=== PATIENT | female | born 1970 | race Caucasian/White ===

== ENCOUNTER 2016-09-14 15:50 | Emergency (ER) | payer OTHER ==
[2016-09-14 15:59] VITALS: BMI 24.4
--- NOTE | 2016-09-14 17:33 | PDOC ---
History of Present Illness - General History Source: Patient Exam Limitations: No Limitations - History of Present Illness Initial Comments: 09/14/16 17:55 The patient is a 46 year old female, with a significant past medical history of asthma and HTN, who presents to the emergency department with wheezing and shortness of breath for the past week. She rates her pain a 10/10 in severity and reports that it particularly hurts when she takes a deep breath. The patient states that her symptoms feel similar to previous asthma exacerbations. The patient denies fever, chills, cough or any chest pain. The patient states that she did have a flu shot this season. The patients primary language is Serbian. Allergies: None reported. Past Surgical History: Eris Muñoz Social History: Non smoker. Denies alcohol or drug use. PCP: Dr. Nataliia Otero <Pat Broderick - Last Filed: 09/14/16 22:49> <Yaya Poole - Last Filed: 09/15/16 01:24> - General Chief Complaint: Asthma Stated Complaint: asthma,sob,wheeze Past History <Pat Broderick - Last Filed: 09/14/16 22:49> - Past Medical History Anemia: No Asthma: Yes Cancer: No Cardiac Disorders: No CVA: No COPD: No CHF: No Dementia: No Diabetes: No GI Disorders: No Disorders: No HTN: Yes Hypercholesterolemia: No Liver Disease: No Seizures: No Thyroid Disease: No - Surgical History Abdominal Surgery: Yes (JESSEE REJI) - Psycho/Social/Smoking Cessation Hx Anxiety: No Suicidal Ideation: No Smoking History: Never smoked Have you smoked in the past 12 months: No Information on smoking cessation initiated: No Hx Alcohol Use: No Drug/Substance Use Hx: No Substance Use Type: None <Yaya Poole - Last Filed: 09/15/16 01:24> - Past Medical History Allergies/Adverse Reactions: Allergies Allergy/AdvReac Type Severity Reaction Status Date / Time No Known Allergies Allergy Verified 09/14/16 15:54 Home Medications: Ambulatory Orders Amlodipine Besylate 10 mg PO DAILY 02/20/16 Hydrochlorothiazide [Hctz -] 25 mg PO DAILY 02/20/16 Albuterol Sulfate Inhaler - [Ventolin Hfa Inhaler -] 1 - 2 inh PO Q4H PRN Albuterol 0.083% Nebulizer Flor [Ventolin 0.083% Nebulizer Soln -] 1 neb NEB Q4HWA #60 vial 09/15/16 Dexamethasone 4 mg PO DAILY #4 tablet 09/15/16 Review of Systems - Review of Systems Able to Perform ROS?: Yes Comments:: 09/14/16 17:45 GENERAL/CONSTITUTIONAL: No fever or chills. No weakness. HEAD, EYES, EARS, NOSE AND THROAT: No change in vision. No ear pain or discharge. No sore throat. CARDIOVASCULAR: No chest pain or shortness of breath. RESPIRATORY: +Wheezing, shortness of breath. No cough or hemoptysis. GASTROINTESTINAL: No nausea, vomiting, diarrhea or constipation. GENITOURINARY: No dysuria, frequency, or change in urination. MUSCULOSKELETAL: No joint or muscle swelling or pain. No neck or back pain. SKIN: No rash. NEUROLOGIC: No headache, vertigo, loss of consciousness, or change in strength/ sensation. ENDOCRINE: No increased thirst. No abnormal weight change. HEMATOLOGIC/LYMPHATIC: No anemia, easy bleeding, or history of blood clots. ALLERGIC/IMMUNOLOGIC: No hives or skin allergy. <Pat Broderick - Last Filed: 09/14/16 22:49> *Physical Exam - Vital Signs Last Vital Signs Temp Pulse Resp BP Pulse Ox 98.1 F 71 18 143/81 100 09/14/16 15:56 09/14/16 15:56 09/14/16 15:56 09/14/16 15:56 09/14/16 15:56 - Physical Exam Comments: 09/14/16 17:49 GENERAL: Awake, alert, and fully oriented, in no acute distress. HEAD: No signs of trauma. EYES: PERRLA, EOMI, sclera anicteric, conjunctiva clear. ENT: Auricles normal inspection, hearing grossly normal, nares patent, oropharynx clear without exudates. Moist mucosa. NECK: Normal ROM, supple, no lymphadenopathy, JVD, or masses. LUNGS: Bilateral wheezing and rhonchi. Patient is speaking full sentences. Breath sounds equal. No crackles. HEART: Regular rate and rhythm, normal S1 and S2, no murmurs, rubs or gallops. ABDOMEN: Soft, nontender, normoactive bowel sounds. No guarding, no rebound. No masses. EXTREMITIES: Normal range of motion, no edema. No clubbing or cyanosis. No cords , erythema, or tenderness. NEUROLOGICAL: Cranial nerves II through XII grossly intact. Normal speech, normal gait. SKIN: Warm, dry, normal turgor, no rashes or lesions noted. <Pat Broderick - Last Filed: 09/14/16 22:49> - Vital Signs Last Vital Signs Temp Pulse Resp BP Pulse Ox 98.1 F 71 18 143/81 100 09/14/16 15:56 09/14/16 15:56 09/14/16 15:56 09/14/16 15:56 09/14/16 15:56 <Yaya Poole - Last Filed: 09/15/16 01:24> ED Treatment Course - LABORATORY CBC & Chemistry Diagram: 09/14/16 18:00 09/14/16 18:06 <Pat Broderick - Last Filed: 09/14/16 22:49> - LABORATORY CBC & Chemistry Diagram: 09/14/16 18:00 09/14/16 18:06 <Yaya Poole - Last Filed: 09/15/16 01:24> Medical Decision Making - Medical Decision Making 09/14/16 22:49 EXAM: RAD/CHEST X-RAY Reviewed By: Dr. Dennise Amor IMPRESSION: No focal lung consolidation or pleural effusions. Cardiomediastinal silhouette normal. Bones unremarkable. <Pat Broderick - Last Filed: 09/14/16 22:49> *DC/Admit/Observation/Transfer - Attestations Scribe Attestion: 09/14/16 17:34 Documentation prepared by Pat Broderick, acting as biomedical repair technician for Yaya Poole MD, MD/DO. <Pat Broderick - Last Filed: 09/14/16 22:49> - Discharge Dispostion Admit: No <Yaya Poole - Last Filed: 09/15/16 01:24> Diagnosis at time of Disposition: Exacerbation of asthma - Discharge Dispostion Disposition: HOME Condition at time of disposition: Improved - Prescriptions Prescriptions: Dexamethasone 4 mg PO DAILY #4 tablet Albuterol 0.083% Nebulizer Flor [Ventolin 0.083% Nebulizer Soln -] [address] [facility] Q4HWA #60 vial - Referrals Referrals: Collin Curtis MD [Staff Physician] - Nataliia Otero MD [Primary Care Provider] - - Patient Instructions Printed Discharge Instructions: Asthma -- Adult
[2016-09-14] MEDS ORDERED: DEXAMETHASONE SOD PHOSPHATE 10 MG/1 ML VIAL IVPUSH ONE (17:40)
[2016-09-14] MEDS ORDERED: ALBUTEROL SO4 2.5/IPRATROPIUM 0.5 INH SOL 3 ML VIAL.NEB. NEB ONE ×2 (17:46→19:56)
[2016-09-14] MEDS ORDERED: DEXAMETHASONE SOD PHOSPHATE 10 MG/1 ML VIAL ONE (17:46)
[2016-09-14] MEDS: ALBUTEROL SO4 2.5/IPRATROPIUM 0.5 INH SOL 3 ML VIAL.NEB. NEB SCH ×3 (17:50→20:03)
[2016-09-14 18:10] LABS: BASOPHIL 1.7 % (0-2.0); EOSINOPHIL 3.1 % (0-4.5); MCH 31.8 pg (25.7-33.7); MCHC 34.2 g/dl (32.0-36.0); MEAN CELL VOLUME 93.2 fl (80-96); MEAN PLT VOLUME 8.1 fl (7.5-11.1); NEUTROPHILS 53.4 % (42.8-82.8); PLATELET COUNT 297 K/MM3 (134-434); RDW 12.7 % (11.6-15.6); WHITE BLOOD COUNT 10.6 K/mm3 (4.0-10.0)
[2016-09-14 18:47] LABS: INR 1.01 (0.82-1.09)
[2016-09-14 18:49] LABS: ACTIVATED PTT 33.2 SECONDS (26.9-34.4)
[2016-09-14 19:04] LABS: URINE APPEARANCE SLCLOUDY; URINE BILIRUBIN NEGATIVE (NEGATIVE); URINE COLOR YELLOW; URINE GLUCOSE (UA) NEGATIVE (NEGATIVE); URINE KETONE NEGATIVE (NEGATIVE); URINE NITRITE NEGATIVE (NEGATIVE); URINE PROTEIN NEGATIVE (NEGATIVE); URINE UROBILINOGEN NEGATIVE E.U./dl (0.2-1.0)
[2016-09-14 19:29] LABS: URINE BLOOD 2+ (NEGATIVE); URINE LEUK ESTERASE TRACE (NEGATIVE)
[2016-09-14 19:38] LABS: URINE BACTERIA FEW /hpf (NONE SEEN); URINE MUCUS MANY; URINE RBC 9 /hpf (0-3); URINE WBC 8 /hpf (3-5)
[2016-09-14 19:42] LABS: D-DIMER < 200 ng/ml (<200-235)
[2016-09-14 21:46] LABS: ALBUMIN 3.9 g/dl (3.4-5.0); ANION GAP 12 (8-16); BILIRUBIN,TOTAL 0.2 mg/dL (0.2-1.0); CALCIUM 9.2 mg/dL (8.5-10.1); CO2 21 mmol/L (21-32); CREATININE 0.8 mg/dL (0.55-1.02); GLUCOSE,RANDOM 154 mg/dL (74-106); SGOT/AST 13 U/L (15-37); SGPT/ALT 16 U/L (12-78); TOT PROT 7.2 g/dl (6.4-8.2)
[2016-09-14 21:47] LABS: ALK PHOS 60 U/L (45-117)
[2016-09-14] MEDS ORDERED: POTASSIUM CHLORIDE TABS 20 MEQ TABLET.ER (FP) PO ONE ×2 (22:21→22:24)
[2016-09-14] MEDS ORDERED: MAGNESIUM SULF 50% (8.12 MEQ/2 ML-1 GM VIAL) IVPB ONE (22:25)
[2016-09-14] MEDS ORDERED: MAGNESIUM SULF 50% (8.12 MEQ/2 ML-1 GM VIAL) ONE (22:35)
[2016-09-14] MEDS ORDERED: ALBUTEROL SO4 0.083% IH SOL 2.5 MG/3 ML VIAL.NEB. NEB ONE ×2 (22:36→23:24)
[2016-09-14] MEDS: ALBUTEROL SO4 0.083% IH SOL 2.5 MG/3 ML VIAL.NEB. NEB SCH ×4 (22:48→23:30)
[2016-09-15 01:16] VITALS: BP 135/83; PULSE 90; TEMP 98.3
== END 2016-09-15 01:18 | disposition home or self-care (01) ==
LOC: JER 15:50
PROC: 3E0F7GC Introduction of Other Therapeutic Substance into Respiratory Tract, Via Natural or Artificial Opening (ICD-10-PCS; principal; 2016-09-14)
PROC: 3E033GC Introduction of Other Therapeutic Substance into Peripheral Vein, Percutaneous Approach (ICD-10-PCS; 2016-09-14)
DX: J45.901 Unspecified asthma with (acute) exacerbation (principal); I10 Essential (primary) hypertension
CPT/HCPCS: 36415; 71020-TC; 80053; 81003; 81015; 84703; 85025; 85379; 85610; 85730; 87040; 94640; 96374; 96375; 99283-25

== ENCOUNTER → 2017-01-28 | Emergency (ER) | payer OTHER ==
[2017-01-28 21:16] VITALS: BP 145/82; PULSE 75; TEMP 98; BMI 24.0
[2017-01-28 21:29] LABS: URINE APPEARANCE CLEAR; URINE BILIRUBIN NEGATIVE (NEGATIVE); URINE BLOOD 2+ (NEGATIVE); URINE COLOR LTYELLOW; URINE GLUCOSE (UA) NEGATIVE (NEGATIVE); URINE KETONE NEGATIVE (NEGATIVE); URINE LEUK ESTERASE NEGATIVE (NEGATIVE); URINE NITRITE NEGATIVE (NEGATIVE); URINE PROTEIN NEGATIVE (NEGATIVE); URINE UROBILINOGEN NEGATIVE E.U./dl (0.2-1.0)
[2017-01-28 21:31] LABS: URINE MUCUS RARE; URINE RBC 6 /hpf (0-3); URINE WBC 2 /hpf (3-5)
--- NOTE | 2017-01-28 23:40 | PDOC ---
History of Present Illness - General Chief Complaint: Pain Stated Complaint: PAIN Time Seen by Provider: 01/28/17 21:12 Past History - Past Medical History Allergies/Adverse Reactions: Allergies Allergy/AdvReac Type Severity Reaction Status Date / Time No Known Allergies Allergy Verified 01/28/17 21:12 Home Medications: Ambulatory Orders Amlodipine Besylate 10 mg PO DAILY 02/20/16 Hydrochlorothiazide [Hctz -] 25 mg PO DAILY 02/20/16 Albuterol Sulfate Inhaler - [Ventolin Hfa Inhaler -] 1 - 2 inh PO Q4H PRN Anemia: No Asthma: Yes Cancer: No Cardiac Disorders: No CVA: No COPD: No CHF: No Dementia: No Diabetes: No GI Disorders: No Disorders: No HTN: Yes Hypercholesterolemia: No Liver Disease: No Seizures: No Thyroid Disease: No - Surgical History Abdominal Surgery: Yes (MANDIE MARIE) - Psycho/Social/Smoking Cessation Hx Anxiety: No Suicidal Ideation: No Smoking History: Never smoked Have you smoked in the past 12 months: No Hx Alcohol Use: No Drug/Substance Use Hx: No Substance Use Type: None *Physical Exam - Vital Signs Last Vital Signs Temp Pulse Resp BP Pulse Ox 98 F 75 18 145/82 98 01/28/17 21:16 01/28/17 21:16 01/28/17 21:16 01/28/17 21:16 01/28/17 21:16 ED Treatment Course - ADDITIONAL ORDERS Additional order review: Laboratory Results 01/28/17 21:20 Urine Color Ltyellow Urine Appearance Clear Urine pH 6.0 Ur Specific Salome 1.020 Urine Protein Negative Urine Glucose (UA) Negative Urine Ketones Negative Urine Blood 2+ H Urine Nitrite Negative Urine Bilirubin Negative Urine Urobilinogen Negative Ur Leukocyte Esterase Negative Urine RBC 6 Urine WBC 2 Ur Epithelial Cells Rare Urine Mucus Rare *DC/Admit/Observation/Transfer Diagnosis at time of Disposition: Abdominal pain Qualifiers: Abdominal location: unspecified location Qualified Code(s): R10.9 - Unspecified abdominal pain - Discharge Dispostion Disposition: LEFT BEFORE EVA PIERSON
== END | disposition left against medical advice (07) ==
LOC: JER 21:07
DX: Z53.21 Procedure and treatment not carried out due to patient leaving prior to being seen by health care provider (principal)
CPT/HCPCS: 81003; 81015; 87086; 99281-25

== ENCOUNTER 2017-03-03 04:33 | Emergency (ER) | payer OTHER ==
--- NOTE | 2017-03-03 04:49 | PDOC ---
History of Present Illness - General Stated Complaint: PAIN Time Seen by Provider: 03/03/17 04:49 History Source: Patient Exam Limitations: No Limitations - History of Present Illness Initial Comments: 03/03/17 05:17 Patient is a 46F with a history of htn and asthma here today complaining of boils along her buttock and inner thigh starting 3 days ago. She denies nausea, vomiting, and fevers. She endorses chills. She denies constipation, diarrhea, dysuria and pain with defecation. She denies a history of abscess or anything similar happening in the past. Past History - Past Medical History Allergies/Adverse Reactions: Allergies Allergy/AdvReac Type Severity Reaction Status Date / Time No Known Allergies Allergy Verified 03/03/17 05:24 Home Medications: Ambulatory Orders Amlodipine Besylate 10 mg PO DAILY 02/20/16 Hydrochlorothiazide [Hctz -] 25 mg PO DAILY 02/20/16 Albuterol Sulfate Inhaler - [Ventolin Hfa Inhaler -] 1 - 2 inh PO Q4H PRN Amoxicillin/Potassium Clav [Augmentin 875-125 Tablet] 1 each PO BID #14 tablet 03/03/17 Bacitracin - [Bacitracin Topical Ointment -] 1 applic TP BID #10 g 03/03/17 Anemia: No Asthma: Yes Cancer: No Cardiac Disorders: No CVA: No COPD: No CHF: No Dementia: No Diabetes: No GI Disorders: No Disorders: No HTN: Yes Hypercholesterolemia: No Liver Disease: No Seizures: No Thyroid Disease: No - Surgical History Abdominal Surgery: Yes (MANDIE MARIE) - Psycho/Social/Smoking Cessation Hx Anxiety: No Suicidal Ideation: No Smoking History: Never smoked Have you smoked in the past 12 months: No Hx Alcohol Use: No Drug/Substance Use Hx: No Substance Use Type: None Review of Systems - Review of Systems Comments:: 03/03/17 05:57 GENERAL/CONSTITUTIONAL: No fever or chills. No weakness. HEAD, EYES, EARS, NOSE AND THROAT: No change in vision. No sore throat CARDIOVASCULAR: No chest pain or shortness of breath RESPIRATORY: No cough, wheezing GASTROINTESTINAL: No nausea, vomiting, diarrhea or constipation. GENITOURINARY: No dysuria, frequency, or change in urination. SKIN: Boils along buttock and lower leg NEUROLOGIC: No headache *Physical Exam - Physical Exam Comments: 03/03/17 05:59 GENERAL: Awake, alert, and fully oriented, in no acute distress HEAD: No signs of trauma, normocephalic, atraumatic EYES: PERRLA, EOMI, sclera anicteric, conjunctiva clear ENT: Auricles normal inspection, hearing grossly normal, nares patent, Moist mucosa LUNGS: No distress, speaks full sentences, clear to auscultation bilaterally HEART: Regular rate and rhythm, normal S1 and S2, no murmurs, rubs or gallops, peripheral pulses normal and equal bilaterally. ABDOMEN: Soft, nontender, normoactive bowel sounds. No guarding, no rebound. No masses EXTREMITIES: Normal inspection, Normal range of motion, no edema. No clubbing or cyanosis. NEUROLOGICAL: Cranial nerves II through XII grossly intact. Normal speech, normal gait, no focal sensorimotor deficits SKIN: 4 1x1cm areas of erythematous boils along gluteal cleft down posterior thigh. Tender to palpation. No areas of fluctuance felt. *DC/Admit/Observation/Transfer Diagnosis at time of Disposition: Boil of buttock - Discharge Dispostion Disposition: HOME Condition at time of disposition: Good Admit: No - Prescriptions Prescriptions: Amoxicillin/Potassium Clav [Augmentin 875-125 Tablet] 1 each PO BID #14 tablet Bacitracin - [Bacitracin Topical Ointment -] 1 applic TP BID #10 g - Patient Instructions Printed Discharge Instructions: DI for Boils - Post Discharge Activity Work/School Note: Back to Work - Attestations Physician Attestion: 03/03/17 05:57 I, Dr. Edison Freire, attest that this document has been prepared under my direction and personally reviewed by me in its entirety. I further attest, that it accurately reflects all work, treatment, procedures and medical decision -making performed by me.
[2017-03-03 05:10] VITALS: BP 163/99; PULSE 69; TEMP 98.2; BMI 23.2
--- NOTE | 2017-03-03 05:23 | PDOC ---
Attending Attestation - Resident Resident Name: Edison Freire - HPI HPI: 03/03/17 06:53 PIMPLES ON THIGH/BUTTOCK - Physicial Exam PE: 03/03/17 06:53 AGREE WITH RESIDENT EXAM - Medical Decision Making 03/03/17 06:53 AUGMENTIN AND PAIN CONTROL. HOT COMPRESS AND BACITRACIN OINTMENT.
[2017-03-03] MEDS ORDERED: AMOX TR/POT CLAV 875MG/125MG TABLETS (FP) PO ONE (05:50)
[2017-03-03] MEDS ORDERED: AMOX TR/POT CLAV 875MG/125MG TABLETS (FP) ONE (05:56)
== END 2017-03-03 06:09 | disposition home or self-care (01) ==
LOC: JER 04:33
DX: L02.32 Furuncle of buttock (principal); I10 Essential (primary) hypertension; J45.909 Unspecified asthma, uncomplicated
CPT/HCPCS: 99281-25

== ENCOUNTER 2017-05-23 21:33 | Emergency (ER) | payer OTHER ==
[2017-05-23 21:49] VITALS: TEMP 98.5; BMI 24.4
--- NOTE | 2017-05-23 22:16 | PDOC ---
History of Present Illness - History of Present Illness Initial Comments: 05/23/17 22:23 The patient is a 47 year old female, with a significant past medical history of htn and asthma (uses inhaler as needed), who presents to the emergency department for evaluation of sharp pain to her left arm with radiation of pain into her chest. The patient reports experiencing a "pressure" to her chest at the onset of her left arm pain. She reports her chest pain has developed into sharp pain. She also reports chills. The patient denies experiencing this pain in the past. She denies diaphoresis, shortness of breath, headache and dizziness. She denies fever, nausea, vomit, diarrhea and constipation. She denies dysuria, frequency, urgency and hematuria. Allergies: NKDA Past surgical history: grandfather and grandmother AL at 80yo Social history: Pt denies tobacco use. <Majo Lozada - Last Filed: 05/23/17 23:51> - General History Source: Patient <Sesar Grey - Last Filed: 05/24/17 01:12> - General Chief Complaint: Chest Pain Stated Complaint: PAIN Time Seen by Provider: 05/23/17 22:00 Past History <Majo Lozada - Last Filed: 05/23/17 23:51> - Past Medical History Anemia: No Asthma: Yes Cancer: No Cardiac Disorders: No CVA: No COPD: No CHF: No Dementia: No Diabetes: No GI Disorders: No Disorders: No HTN: Yes Hypercholesterolemia: No Liver Disease: No Seizures: No Thyroid Disease: No - Surgical History Abdominal Surgery: Yes (MANDIE MARIE) - Suicide/Smoking/Psychosocial Hx Smoking History: Never smoked Have you smoked in the past 12 months: No Hx Alcohol Use: No Drug/Substance Use Hx: No Substance Use Type: None <Sesar Grey - Last Filed: 05/24/17 01:12> - Past Medical History Allergies/Adverse Reactions: Allergies Allergy/AdvReac Type Severity Reaction Status Date / Time No Known Allergies Allergy Verified 05/23/17 21:44 Home Medications: Ambulatory Orders Amlodipine Besylate 10 mg PO DAILY 02/20/16 Hydrochlorothiazide [Hctz -] 25 mg PO DAILY 02/20/16 Albuterol Sulfate Inhaler - [Ventolin Hfa Inhaler -] 1 - 2 inh PO Q4H PRN Azithromycin [Zithromax -] 250 mg PO UTDICT #6 tab 05/24/17 Methylprednisolone [Medrol Dose Kofi] 4 mg PO ASDIR #21 tablet 05/24/17 Review of Systems - Review of Systems Able to Perform ROS?: Yes Comments:: 05/23/17 22:24 CONSTITUTIONAL: (+) chills, Absent: fever, diaphoresis, generalized weakness, malaise, loss of appetite HEENT: Absent: rhinorrhea, nasal congestion, throat pain, throat swelling, difficulty swallowing, mouth swelling, ear pain, eye pain, visual Changes CARDIOVASCULAR: (+) chest pain, Absent:syncope, palpitations, irregular heart rate, lightheadedness, peripheral edema RESPIRATORY: Absent: cough, shortness of breath, dyspnea with exertion, orthopnea, wheezing, stridor, hemoptysis GASTROINTESTINAL: Absent: abdominal pain, abdominal distension, nausea, vomiting, diarrhea, constipation, melena, hematochezia GENITOURINARY: Absent: dysuria, frequency, urgency, hesitancy, hematuria, flank pain, genital pain MUSCULOSKELETAL: (+) left arm pain. Absent: myalgia, arthralgia, joint swelling SKIN: Absent: rash, itching, pallor HEMATOLOGIC/IMMUNOLOGIC: Absent: easy bleeding, easy bruising, lymphadenopathy, frequent infections ENDOCRINE: Absent: unexplained weight gain, unexplained weight loss, heat intolerance, cold intolerance NEUROLOGIC: Absent: headache, focal weakness or paresthesias, dizziness, unsteady gait, seizure, mental status changes, bladder or bowel incontinence PSYCHIATRIC: Absent: anxiety, depression, suicidal or homicidal ideation, hallucinations. <Majo Lozada - Last Filed: 05/23/17 23:51> *Physical Exam - Vital Signs Last Vital Signs Temp Pulse Resp BP Pulse Ox 98.5 F 74 18 156/109 97 05/23/17 21:45 05/23/17 21:45 05/23/17 21:45 05/23/17 21:45 05/23/17 21:45 - Physical Exam Comments: 05/23/17 22:25 GENERAL: Well developed, well nourished. Awake and alert. No acute distress. HEENT: Normocephalic, atraumatic. PERRLA, EOMI. No conjunctival pallor. Sclera are non- icteric. Moist mucous membranes. Oropharynx is clear. NECK: Supple. Full ROM. No JVD. Carotid pulses 2+ and symmetric, without bruits. No thyromegaly. No lymphadenopathy. CARDIOVASCULAR: Regular rate and rhythm. No murmurs, rubs, or gallops. Distal pulses are 2+ and symmetric. PULMONARY: (+) decreased breath sounds posteriorly with scant wheezing, anterior lung burk are clear. No rales or rhonchi. ABDOMINAL: Soft. Non-tender. Non-distended. No rebound or guarding. No organomegaly. Normoactive bowel sounds. MUSCULOSKELETAL Normal range of motion at all joints. No bony deformities or tenderness. No CVA tenderness. EXTREMITIES: No cyanosis. No clubbing. No edema. No calf tenderness. SKIN: Warm and dry. Normal capillary refill. No rashes. No jaundice. NEUROLOGICAL: Alert, awake, appropriate. Cranial nerves 2-12 intact. Normoreflexic in the upper and lower extremities. Normal speech. Toes are down-going bilaterally. Gait is normal without ataxia. PSYCHIATRIC: Cooperative. Good eye contact. Appropriate mood and affect. <Majo Lozada - Last Filed: 05/23/17 23:51> - Vital Signs Last Vital Signs Temp Pulse Resp BP Pulse Ox 98.5 F 74 18 156/109 97 05/23/17 21:45 05/23/17 21:45 05/23/17 21:45 05/23/17 21:45 05/23/17 21:45 <Sesar Grey - Last Filed: 05/24/17 01:12> ED Treatment Course - LABORATORY CBC & Chemistry Diagram: 05/23/17 22:22 05/23/17 22:22 <Majo Lozada - Last Filed: 05/23/17 23:51> - LABORATORY CBC & Chemistry Diagram: 05/23/17 22:22 05/23/17 22:22 <Sesar Grey - Last Filed: 05/24/17 01:12> Medical Decision Making - Medical Decision Making 05/23/17 23:52 ECG was read by Dr. Grey at 21:58 Impression: Normal sinus rhythm, possible left atrial enlargement, nonspecific Twave abnormality. Vent rate: 73 bpm WV Interval: 164 ms QTc: 436 ms <Majo Lozada - Last Filed: 05/23/17 23:51> - Medical Decision Making 05/24/17 01:12 air exchange has improved. Will discharge pt. Rx Zithromax and Medrol dose sent. <Sesar Grey - Last Filed: 05/24/17 01:12> *DC/Admit/Observation/Transfer - Attestations Scribe Attestion: 05/23/17 22:26 Documentation prepared by Majo Lozada, acting as medical record retrieval specialist for Sesar Grey DO <Majo Lozada - Last Filed: 05/23/17 23:51> - Discharge Dispostion Admit: No <Sesar Grey - Last Filed: 05/24/17 01:12> Diagnosis at time of Disposition: Asthma attack - Discharge Dispostion Disposition: HOME Condition at time of disposition: Stable - Patient Instructions Printed Discharge Instructions: DI for Asthma -- Adult - Post Discharge Activity Forms/Work/School Notes: Back to Work
[2017-05-23] MEDS ORDERED: methylPREDNISolone NA SUCC 125 MG/2 ML VIAL IVPB ONE (22:23)
[2017-05-23] MEDS ORDERED: MAGNESIUM SULF 50% (8.12 MEQ/2 ML-1 GM VIAL) IVPB ONE (22:23)
[2017-05-23] MEDS ORDERED: ALBUTEROL SO4 2.5/IPRATROPIUM 0.5 INH SOL 3 ML VIAL.NEB. NEB STA ×3 (22:23→23:48)
[2017-05-23] MEDS ORDERED: ASPIRIN 81 MG CHEWABLE TABLETS PO ONE (22:23)
[2017-05-23] MEDS ORDERED: MAGNESIUM SULF 50% (8.12 MEQ/2 ML-1 GM VIAL) ONE (22:41)
[2017-05-23] MEDS ORDERED: ASPIRIN 325 MG TABLET ONE (22:41)
[2017-05-23] MEDS ORDERED: methylPREDNISolone NA SUCC 125 MG/2 ML VIAL ONE (22:41)
[2017-05-23 22:48] LABS: BASOPHIL 0.8 % (0-2.0); EOSINOPHIL 4.2 % (0-4.5); MCH 32.5 pg (25.7-33.7); MCHC 34.6 g/dl (32.0-36.0); MEAN CELL VOLUME 93.9 fl (80-96); MEAN PLT VOLUME 8.5 fl (7.5-11.1); NEUTROPHILS 53.4 % (42.8-82.8); PLATELET COUNT 301 K/MM3 (134-434); RDW 12.5 % (11.6-15.6); WHITE BLOOD COUNT 10.3 K/mm3 (4.0-10.0)
[2017-05-23 22:54] LABS: INR 0.99 (0.82-1.09); PROTHROMBIN TIME (PATIENT) 11.2 SEC (9.98-11.88)
[2017-05-23 23:17] LABS: ALBUMIN 4.1 g/dl (3.4-5.0); ANION GAP 8 (8-16); BILIRUBIN,TOTAL 0.4 mg/dL (0.2-1.0); CO2 30 mmol/L (21-32); CREATININE 0.7 mg/dL (0.55-1.02); GLUCOSE,RANDOM 101 mg/dL (74-106); SGOT/AST 13 U/L (15-37); SGPT/ALT 20 U/L (12-78); TOT PROT 7.4 g/dl (6.4-8.2)
[2017-05-23 23:18] LABS: ALK PHOS 70 U/L (45-117)
[2017-05-23 23:20] LABS: CPK 89 IU/L (26-192); TROPONIN I < 0.02 ng/ml (0.00-0.05)
[2017-05-24] MEDS ORDERED: ALBUTEROL SO4 2.5/IPRATROPIUM 0.5 INH SOL 3 ML VIAL.NEB. NEB ONE
[2017-05-24 01:21] VITALS: BP 109/73; PULSE 78
--- NOTE | 2017-05-25 13:16 | EKG ---
Test Reason : Blood Pressure : / mmHG Vent. Rate : 073 BPM Atrial Rate : 073 BPM P-R Int : 164 ms QRS Dur : 074 ms QT Int : 396 ms P-R-T Axes : 075 037 049 degrees QTc Int : 436 ms NORMAL SINUS RHYTHM POSSIBLE LEFT ATRIAL ENLARGEMENT NONSPECIFIC T WAVE ABNORMALITY ABNORMAL ECG WHEN COMPARED WITH ECG OF 26-JUL-2008 08:29, NO SIGNIFICANT CHANGE WAS FOUND CLINICAL CORRELATION IS RECOMMENDED Confirmed by KASSANDRA BABIN, PRIYA ([id number]) on 05/25/2017 1:15:44 PM Referred By: Confirmed By:PRIYA CANNON MD
== END 2017-05-24 01:35 | disposition home or self-care (01) ==
LOC: JER 21:33
PROC: 3E0F7GC Introduction of Other Therapeutic Substance into Respiratory Tract, Via Natural or Artificial Opening (ICD-10-PCS; principal; 2017-05-23)
PROC: 3E0F7GC Introduction of Other Therapeutic Substance into Respiratory Tract, Via Natural or Artificial Opening (ICD-10-PCS; 2017-05-23)
PROC: 3E0F7GC Introduction of Other Therapeutic Substance into Respiratory Tract, Via Natural or Artificial Opening (ICD-10-PCS; 2017-05-23)
PROC: 3E0333Z Introduction of Anti-inflammatory into Peripheral Vein, Percutaneous Approach (ICD-10-PCS; 2017-05-23)
PROC: 3E033GC Introduction of Other Therapeutic Substance into Peripheral Vein, Percutaneous Approach (ICD-10-PCS; 2017-05-23)
DX: J45.901 Unspecified asthma with (acute) exacerbation (principal); I10 Essential (primary) hypertension
CPT/HCPCS: 36415; 71010-TC; 80053; 82550; 84484; 84703; 85025; 85610; 93005; 93010; 99283-25

== ENCOUNTER 2017-07-16 16:25 | Emergency (ER) | payer OTHER ==
[2017-07-16 16:38] VITALS: BP 119/79; PULSE 75; TEMP 98.3; BMI 24.7
[2017-07-16] MEDS ORDERED: ALBUTEROL SO4 2.5/IPRATROPIUM 0.5 INH SOL 3 ML VIAL.NEB. NEB ONE ×3 (16:44→17:59)
--- NOTE | 2017-07-16 16:44 | PDOC ---
Rapid Medical Evaluation Chief Complaint: Back Pain Time Seen by Provider: 07/16/17 16:39 Medical Evaluation: Allergies Allergy/AdvReac Type Severity Reaction Status Date / Time No Known Allergies Allergy Verified 07/16/17 16:34 Vital Signs Temp Pulse Resp BP Pulse Ox 98.3 F 75 19 119/79 100 07/16/17 16:34 07/16/17 16:34 07/16/17 16:34 07/16/17 16:34 07/16/17 16:34 07/16/17 16:40 The patient presents with a chief complaint of: mid back pain x 2 weeks worsened with deep breathing and coughing, hx asthma I have performed a brief in-person evaluation of this patient. Pertinent physical exam findings: exp wheeze elizabeth with coarse breath sounds to left base I have ordered the following: albuterol neb given triage The patient will proceed to the ED for further evaluation. Discharge Disposition - Diagnosis Back pain, Wheeze - Referrals - Patient Instructions - Post Discharge Activity
--- NOTE | 2017-07-16 17:38 | PDOC ---
History of Present Illness - General Chief Complaint: Back Pain Stated Complaint: BACK PAIN/ASTHMA Time Seen by Provider: 07/16/17 16:39 History Source: Patient Exam Limitations: No Limitations - History of Present Illness Initial Comments: 07/16/17 17:46 Chief complaint: Cough, 2 weeks with bilateral upper back pain with chest tightness and wheezing intermittently History of present illness: Patient is a 47-year-old female with a history of asthma and hypertension here today complaining of a dry cough 2 weeks with bilateral upper back pain with chest tightness and wheezing intermittently. Patient reports that she feels short of breath with exertion. Patient has been using her Ventolin pump more than usual. Patient denies any fever or any nausea , vomiting, or diarrhea or any difficulty swallowing. Patient reports being hospitalized once for one month for with her asthma with no intubation. Is up- to-date within vaccine to except for influenza this year. Timing/Duration: intermittent Severity: moderate Associated Symptoms: reports: cough (dry ), shortness of breath (with exertion ) , other (b/l mid back pain ) Past History - Past Medical History Allergies/Adverse Reactions: Allergies Allergy/AdvReac Type Severity Reaction Status Date / Time No Known Allergies Allergy Verified 07/16/17 16:34 Home Medications: Ambulatory Orders Amlodipine Besylate 10 mg PO DAILY 02/20/16 Hydrochlorothiazide [Hctz -] 25 mg PO DAILY 02/20/16 Albuterol Sulfate Inhaler - [Ventolin HFA Inhaler -] 2 inh PO Q4H PRN #1 inhaler 07/16/17 Azithromycin [Zithromax 250mg Tablets -] 250 mg PO UTDICT #6 tab 07/16/17 Prednisone [Deltasone] 20 mg PO BID #8 tablet 07/16/17 Anemia: No Asthma: Yes Cancer: No Cardiac Disorders: No CVA: No COPD: No CHF: No Dementia: No Diabetes: No GI Disorders: No Disorders: No HTN: Yes Hypercholesterolemia: No Liver Disease: No Seizures: No Thyroid Disease: No - Surgical History Abdominal Surgery: Yes (MANDIE MARIE) - Suicide/Smoking/Psychosocial Hx Smoking History: Never smoked Have you smoked in the past 12 months: No Hx Alcohol Use: No Drug/Substance Use Hx: No Substance Use Type: None Review of Systems - Review of Systems Able to Perform ROS?: Yes Constitutional: No: Symptoms Reported HEENTM: No: Symptoms Reported Respiratory: Yes: Cough, SOB with Exertion, Wheezing Cardiac (ROS): No: Symptoms Reported ABD/GI: No: Symptoms Reported Musculoskeletal: Yes: Back Pain (B/L UPPER BACK ) Integumentary: No: Symptoms Reported Neurological: No: Symptoms reported *Physical Exam - Vital Signs Last Vital Signs Temp Pulse Resp BP Pulse Ox 98.3 F 75 19 119/79 100 07/16/17 16:34 07/16/17 16:34 07/16/17 16:34 07/16/17 16:34 07/16/17 16:34 - Physical Exam General Appearance: Yes: Appropriately Dressed HEENT: positive: Normal ENT Inspection Neck: negative: Lymphadenopathy (R), Lymphadenopathy (L) Respiratory/Chest: positive: Lungs Clear, Normal Breath Sounds. negative: Chest Tender, Respiratory Distress Cardiovascular: positive: Regular Rhythm, Regular Rate, S1, S2 Gastrointestinal/Abdominal: positive: Normal Bowel Sounds, Soft. negative: Tender, Organomegaly, Distended, Guarding, Rebound, Tenderness, Hepatomegaly, Spleenomegaly Musculoskeletal: positive: Normal Inspection, Other (B /L THORACIC parspinal muscle tenderness). negative: CVA Tenderness, CVA Tenderness (R), CVA Tenderness (L), Vertebral Tenderness Extremity: positive: Normal Capillary Refill, Normal Inspection, Normal Range of Motion Integumentary: positive: Normal Color ED Treatment Course - Medications Given in the ED: ED Medications Discontinued Medications Generic Name Dose Route Start Last Admin Trade Name Freq PRN Reason Stop Dose Admin Albuterol/Ipratropium 1 amp 07/16/17 16:44 07/16/17 16:55 Duoneb - NEB 07/16/17 16:45 1 amp ONCE ONE Administration Medical Decision Making - Medical Decision Making 07/16/17 18:06 Patient is a 47-year-old female with a history of asthma and hypertension here today complaining of a dry cough 2 weeks with bilateral upper back pain with chest tightness and wheezing intermittently. Patient reports that she feels short of breath with exertion. Patient has been using her Ventolin pump more than usual. Patient denies any fever or any nausea, vomiting, or diarrhea or any difficulty swallowing. Patient reports being hospitalized once for one month for with her asthma with no intubation. Is up-to-date within vaccine to except for influenza this year. She denies any chance of . asthma exacerbation b/l upper back pain PLAN: duoneb xray chest PA/lateral no infiltrate noted prednisone 40 mg now than 20 mg bid for following 4 days ibuprofen 600 mg po now AZITHROMYCIN 250 MG 2 TABS TODAY THAN ONE TAB DAILY FOR FOLLOWING 4 DAYS ALBUTEROL HFA 2 PUFFS EVERY 4 HRS PRN SOB/WHEEZING 07/16/17 18:39 07/16/17 18:47 *DC/Admit/Observation/Transfer Diagnosis at time of Disposition: Wheeze Back pain Qualifiers: Back pain location: thoracic back pain Chronicity: unspecified Back pain laterality: bilateral Qualified Code(s): M54.6 - Pain in thoracic spine Asthma exacerbation Qualifiers: Asthma severity: unspecified severity Asthma persistence: unspecified Qualified Code(s): J45.901 - Unspecified asthma with (acute) exacerbation - Discharge Dispostion Disposition: HOME Condition at time of disposition: Stable - Prescriptions Prescriptions: Albuterol Sulfate Inhaler - [Ventolin HFA Inhaler -] 2 inh PO Q4H PRN #1 inhaler PRN Reason: Short Of Breath/Wheezing Azithromycin [Zithromax 250mg Tablets -] 250 mg PO UTDICT #6 tab Prednisone [Deltasone] 20 mg PO BID #8 tablet - Referrals Referrals: Nataliia Otero MD [Primary Care Provider] - - Patient Instructions Additional Instructions: FOLLOW UP WITH PRIMARY CARE PROVIDER WITHIN THE NEXT 2 DAYS RETURN TO EMERGENCY ROOM IF SYMPTOMS WORSEN OR NEW SYMPTOMS DEVELOP TAKE IBUPROFEN NEEDED DIRECTED BY MACHINE BURRER FOR PAIN PATIENT VOICED UNDERSTANDING OF DISCHARGE INSTRUCTIONS AND ALL QUESTIONS WERE ANSWERED - Post Discharge Activity
[2017-07-16] MEDS ORDERED: IBUPROFEN 600 MG TABLET (FP) PO ONE ×2 (18:09→18:14)
[2017-07-16] MEDS ORDERED: predniSONE 20 MG TABLET (UD) PO ONE (18:40)
[2017-07-16] MEDS ORDERED: predniSONE 20 MG TABLET (UD) ONE (18:46)
== END 2017-07-16 18:52 | disposition home or self-care (01) ==
LOC: JERFT 16:25
PROC: 3E0F7GC Introduction of Other Therapeutic Substance into Respiratory Tract, Via Natural or Artificial Opening (ICD-10-PCS; principal; 2017-07-16)
PROC: 3E0F7GC Introduction of Other Therapeutic Substance into Respiratory Tract, Via Natural or Artificial Opening (ICD-10-PCS; 2017-07-16)
DX: J45.901 Unspecified asthma with (acute) exacerbation (principal); I10 Essential (primary) hypertension
CPT/HCPCS: 71020-TC; 99281-25

== ENCOUNTER 2017-08-03 20:12 | Emergency (ER) | payer OTHER ==
[2017-08-03 20:32] LABS: BASO % 0.6 % (0-2.0); HEMATOCRIT 37.8 % (32.4-45.2); LYMPH % 15.5 % (8-40); MCH 31.6 pg (25.7-33.7); MCHC 34.4 g/dl (32.0-36.0); MEAN CELL VOLUME 92.1 fl (80-96); NEUT % 82.9 % (42.8-82.8); PLATELET COUNT 263 K/MM3 (134-434); RBC 4.11 M/mm3 (3.60-5.2); RDW 12.3 % (11.6-15.6); WHITE BLOOD COUNT 11.6 K/mm3 (4.0-10.0)
[2017-08-03 20:35] VITALS: BP 131/74; PULSE 71; TEMP 98.3; BMI 24.7
--- NOTE | 2017-08-03 20:54 | PDOC ---
History of Present Illness - General Chief Complaint: Pain Stated Complaint: ABD PAIN Time Seen by Provider: 08/03/17 20:39 History Source: Patient Exam Limitations: No Limitations - History of Present Illness Travel History: No Initial Comments: 08/04/17 00:12 47-year-old female with a history of hypertension, renal colic, asthma presents to the emergency department complaining of left-sided flank pain. Pain is described as 5/10 intermittent dull discomfort radiating to the groin without nausea/vomiting, fever/chills, chest pain, shortness of breath, abdominal pains , urinary symptoms: Frequency/urgency/hesitancy, hematuria. There are no alleviating factors but the pain is exacerbated on touch. Patient states symptoms feel similar to her previous renal colic. Timing/Duration: reports: intermittent Abdominal Pain Onset Location: reports: flank (left) Pain Radiation: reports: groin Activities at Onset: reports: none Past History - Past Medical History Allergies/Adverse Reactions: Allergies Allergy/AdvReac Type Severity Reaction Status Date / Time No Known Allergies Allergy Verified 08/03/17 22:01 Home Medications: Ambulatory Orders Amlodipine Besylate 10 mg PO DAILY 02/20/16 Hydrochlorothiazide [Hctz -] 25 mg PO DAILY 02/20/16 Albuterol Sulfate Inhaler - [Ventolin HFA Inhaler -] 2 inh PO Q4H PRN #1 inhaler 07/16/17 Azithromycin [Zithromax 250mg Tablets -] 250 mg PO UTDICT #6 tab 07/16/17 Prednisone [Deltasone] 20 mg PO BID #8 tablet 07/16/17 Anemia: No Asthma: Yes Cancer: No Cardiac Disorders: No CVA: No COPD: No CHF: No Dementia: No Diabetes: No GI Disorders: No Disorders: No HTN: Yes Hypercholesterolemia: No Liver Disease: No Seizures: No Thyroid Disease: No - Surgical History Abdominal Surgery: Yes (MANDIE MARIE) - Suicide/Smoking/Psychosocial Hx Smoking History: Never smoked Have you smoked in the past 12 months: No Information on smoking cessation initiated: No Hx Alcohol Use: No Drug/Substance Use Hx: No Substance Use Type: None Review of Systems - Review of Systems Able to Perform ROS?: Yes Comments:: 08/03/17 21:21 CONSTITUTIONAL: Absent: fever, chills, diaphoresis, generalized weakness, malaise, loss of appetite HEENT: Absent: rhinorrhea, nasal congestion, throat pain, throat swelling, difficulty swallowing, mouth swelling, ear pain, eye pain, visual Changes CARDIOVASCULAR: Absent: chest pain, loss of consciousness, palpitations, irregular heart rate, peripheral edema RESPIRATORY: Absent: cough, shortness of breath, dyspnea with exertion, orthopnea, wheezing, stridor, hemoptysis GASTROINTESTINAL: Absent: abdominal pain, abdominal distension, nausea, vomiting, diarrhea, constipation, melena, hematochezia GENITOURINARY: +left flank pain Absent: dysuria, frequency, urgency, hesitancy, hematuria, genital pain MUSCULOSKELETAL: Absent: myalgia, arthralgia, joint swelling SKIN: Absent: rash, itching, pallor HEMATOLOGIC/IMMUNOLOGIC: Absent: easy bleeding, easy bruising, lymphadenopathy, frequent infections ENDOCRINE: Absent: unexplained weight gain, unexplained weight loss, heat intolerance, cold intolerance NEUROLOGIC: Absent: headache, focal weakness or paresthesias, dizziness, unsteady gait, seizure, mental status changes, bladder or bowel incontinence Is the patient limited Belarusian proficient: No *Physical Exam - Vital Signs Last Vital Signs Temp Pulse Resp BP Pulse Ox 98.3 F 71 16 131/74 98 08/03/17 20:30 08/03/17 20:30 08/03/17 20:30 08/03/17 20:30 08/03/17 20:30 - Physical Exam Comments: 08/03/17 21:21 GENERAL: Well developed, well nourished. Awake and alert. No acute distress. HEENT: Normocephalic, atraumatic. PERRLA, EOMI. No conjunctival pallor. Sclera are non- icteric. Moist mucous membranes. Oropharynx is clear. NECK: Supple. Full ROM. No JVD. Carotid pulses 2+ and symmetric, without bruits. No thyromegaly. No lymphadenopathy. CARDIOVASCULAR: Regular rate and rhythm. No murmurs, rubs, or gallops. Distal pulses are 2+ and symmetric. PULMONARY: No evidence of respiratory distress. Lungs clear to auscultation bilaterally. No wheezing, rales or rhonchi. ABDOMINAL: Soft. Non-tender. Non-distended. No rebound or guarding. No organomegaly. Normoactive bowel sounds. MUSCULOSKELETAL +left CVAT Normal range of motion at all joints. No bony deformities or tenderness. EXTREMITIES: No cyanosis. No clubbing. No edema. No calf tenderness. SKIN: Warm and dry. Normal capillary refill. No rashes. No jaundice. NEUROLOGICAL: Alert, awake, appropriate. Cranial nerves 2-12 intact. No deficits to light touch and temperature in face, upper extremities and lower extremities. No motor deficits in the in face, upper extremities and lower extremities. Normoreflexic in the upper and lower extremities. Normal speech. Toes are down- going bilaterally. Gait is normal without ataxia. ED Treatment Course - LABORATORY CBC & Chemistry Diagram: 08/03/17 20:20 08/03/17 20:20 - ADDITIONAL ORDERS Additional order review: 08/03/17 20:20 RBC 4.11 MCV 92.1 MCHC 34.4 RDW 12.3 MPV 8.0 Neutrophils % 82.9 H D Lymphocytes % 15.5 D Monocytes % 1.0 L Eosinophils % 0.0 D Basophils % 0.6 - RADIOLOGY Radiograph Interpretation: 08/03/17 21:34 CT abd/pelvis po/iv contrast: Small nonobstructing bilateral left renal stones. Lobulated left ovarian cyst versus 2 smaller adjacent cyst no free fluid *DC/Admit/Observation/Transfer Diagnosis at time of Disposition: Renal stones - Discharge Dispostion Disposition: HOME Condition at time of disposition: Stable Admit: No - Referrals Referrals: Nataliia Otero MD [Primary Care Provider] - - Patient Instructions Printed Discharge Instructions: Kidney Stones -- Adult Additional Instructions: Increase fluids Follow up with Urology/Dr Aly [phone] Rest Return to the ER for severe/persistent/worsening symptoms - Post Discharge Activity
--- NOTE | 2017-08-03 20:57 | PDOC ---
Attending Attestation - Resident Resident Name: Candice Machuca - ED Attending Attestation I have performed the following: I have examined & evaluated the patient, The case was reviewed & discussed with the resident, I agree w/resident's findings & plan - HPI HPI: 08/03/17 20:56 Pt comes with her usual kidney stone pain. - Physicial Exam PE: 08/03/17 20:56 Agree with resident exam - Medical Decision Making 08/03/17 20:56 WBC is elevated; UA and chem pending Spiral CT will be ordered. 08/04/17 00:24 Patient Name: DARREN QUINTANILLA THIS IS A PRELIMINARY REPORT FROM [facility] DATE OF SERVICE: 2017-08-03 21:29:58 IMAGES: [id number] EXAM: CT ABDOMEN AND PELVIS without contrast HISTORY: Left lower quadrant pain COMPARISON: None. FINDINGS: Lung bases are clear. The visualized cardiac chambers are normal size and configuration. No small bilateral nonobstructing renal stones. Normal unenhanced liver, gallbladder, pancreas, spleen, adrenal glands . The stomach and abdominal small and large bowel are normal. There is no aortic aneurysm. There is no significant retroperitoneal lymphadenopathy. The pelvic small and large bowel are normal. The appendix is normal. There is a 4.9 x 3.2 cm lobulated left ovarian cyst which is is 2 adjacent smaller cysts status post hysterectomy l. Urinary bladder is unremarkable. There is no pelvic free fluid. No discrete pelvic lymphadenopathy is identified. IMPRESSION: Small nonobstructing bilateral left renal stones. Overnight and a lobulated left ovarian cyst versus 2 smaller adjacent cyst no free fluid, may be further evaluated with ultrasound. THIS DOCUMENT HAS BEEN ELECTRONICALLY SIGNED 08/04/17 00:24 Pt has renal colic; home with NSAIDS
[2017-08-03 20:58] LABS: URINE APPEARANCE CLEAR; URINE BILIRUBIN NEGATIVE (NEGATIVE); URINE BLOOD NEGATIVE (NEGATIVE); URINE COLOR LTYELLOW; URINE GLUCOSE (UA) NEGATIVE (NEGATIVE); URINE KETONE NEGATIVE (NEGATIVE); URINE LEUK ESTERASE TRACE (NEGATIVE); URINE NITRITE NEGATIVE (NEGATIVE); URINE PROTEIN NEGATIVE (NEGATIVE)
[2017-08-03 20:59] LABS: ALBUMIN 3.9 g/dl (3.4-5.0); ANION GAP 10 (8-16); BILIRUBIN,TOTAL 0.6 mg/dL (0.2-1.0); BLOOD UREA NITROGEN 16 mg/dL (7-18); CALCIUM 8.9 mg/dL (8.5-10.1); CHLORIDE 103 mmol/L (98-107); CO2 24 mmol/L (21-32); CREATININE 0.7 mg/dL (0.55-1.02); GLUCOSE,RANDOM 125 mg/dL (74-106); POTASSIUM 3.7 mmol/L (3.5-5.1); SGOT/AST 11 U/L (15-37); SGPT/ALT 20 U/L (12-78); SODIUM 137 mmol/L (136-145); TOT PROT 7.4 g/dl (6.4-8.2)
[2017-08-03 21:00] LABS: ALK PHOS 64 U/L (45-117)
[2017-08-03 21:01] LABS: HCG,QUALITATIVE URINE NEGATIVE
[2017-08-03 21:04] LABS: EPI CELLS MODERATE /HPF (FEW); URINE BACTERIA RARE /hpf (NONE SEEN)
[2017-08-03] MEDS ORDERED: TAMSULOSIN HCL 0.4 MG CAP.ER.24H (FP) PO ONE (21:05)
[2017-08-03] MEDS ORDERED: SODIUM CHLORIDE 0.9% 1000 ML INFUS.BAG IV ONE (21:05)
[2017-08-03] MEDS ORDERED: morphine CARPU-JECT 4 MG/1 ML DISP.SYRIN IVPUSH ONE (21:06)
[2017-08-03] MEDS ORDERED: morphine CARPU-JECT 10 MG/1 ML DISP.SYRIN ONE (21:18)
[2017-08-03] MEDS ORDERED: TAMSULOSIN HCL 0.4 MG CAP.ER.24H (FP) ONE (21:19)
--- NOTE | 2017-08-03 21:35 | PDOC ---
History of Present Illness - General Chief Complaint: Pain Stated Complaint: ABD PAIN Time Seen by Provider: 08/03/17 20:39 History Source: Patient Exam Limitations: No Limitations - History of Present Illness Initial Comments: This is a 47 YOF with h/o renal stones (last 3 yrs ago complicated by UTI), partial HYST, abdominoplasty, HTN, and asthma who presents c/o LLQ pain radiating to the left lower and left mid-back since this morning. The pain is 10 /10, squeezing, fluctuating, worse with walking and urinating, and unrelieved by Motrin. It feels the same as her prior kidney stone. She has been having mild burning on urination and chills today, but denies fever, nausea, vomiting, diarrhea, constipation, bloody or black stool, numbness, tingling, weakness, shooting pain down her leg, incontinence, or other symptoms. She has no vaginal bleeding or discharge and no longer gets menstrual periods 2/2 partial HYST last year. Past History - Past Medical History Allergies/Adverse Reactions: Allergies Allergy/AdvReac Type Severity Reaction Status Date / Time No Known Allergies Allergy Verified 07/16/17 16:34 Home Medications: Ambulatory Orders Amlodipine Besylate 10 mg PO DAILY 02/20/16 Hydrochlorothiazide [Hctz -] 25 mg PO DAILY 02/20/16 Albuterol Sulfate Inhaler - [Ventolin HFA Inhaler -] 2 inh PO Q4H PRN #1 inhaler 07/16/17 Azithromycin [Zithromax 250mg Tablets -] 250 mg PO UTDICT #6 tab 07/16/17 Prednisone [Deltasone] 20 mg PO BID #8 tablet 07/16/17 Anemia: No Asthma: Yes Cancer: No Cardiac Disorders: No CVA: No COPD: No CHF: No Dementia: No Diabetes: No GI Disorders: No Disorders: No HTN: Yes Hypercholesterolemia: No Liver Disease: No Seizures: No Thyroid Disease: No - Surgical History Abdominal Surgery: Yes (MANDIE MARIE) - Suicide/Smoking/Psychosocial Hx Smoking History: Never smoked Have you smoked in the past 12 months: No Information on smoking cessation initiated: No Hx Alcohol Use: No Drug/Substance Use Hx: No Substance Use Type: None *Physical Exam - Vital Signs Last Vital Signs Temp Pulse Resp BP Pulse Ox 98.3 F 71 16 131/74 98 08/03/17 20:30 08/03/17 20:30 08/03/17 20:30 08/03/17 20:30 08/03/17 20:30 ED Treatment Course - LABORATORY CBC & Chemistry Diagram: 08/03/17 20:20 08/03/17 20:20 - ADDITIONAL ORDERS Additional order review: Laboratory Results 08/03/17 08/03/17 20:20 20:20 Sodium 137 Potassium 3.7 Chloride 103 Carbon Dioxide 24 Anion Gap 10 BUN 16 Creatinine 0.7 Creat Clearance w eGFR > 60 Random Glucose 125 H D Calcium 8.9 Total Bilirubin 0.6 D AST 11 L ALT 20 Alkaline Phosphatase 64 Total Protein 7.4 Albumin 3.9 Urine HCG, Qual Negative 08/03/17 20:20 RBC 4.11 MCV 92.1 MCHC 34.4 RDW 12.3 MPV 8.0 Neutrophils % 82.9 H D Lymphocytes % 15.5 D Monocytes % 1.0 L Eosinophils % 0.0 D Basophils % 0.6 - RADIOLOGY Radiology Studies Ordered: Category Date Time Status SPIRAL- RENAL-STONE CT [CT] Stat CT Scan 08/03/17 20:59 Ordered Medical Decision Making - Medical Decision Making 47 YOF with h/o kidney stones p/w LLQ and left flank pain like prior kidney stone. On exam VS wnl but patient appears mildly uncomfortable, splinting LLQ with hands, LLQ and left CVA ttp. DDX IBNLT *DC/Admit/Observation/Transfer - Referrals Referrals: Nataliia Otero MD [Primary Care Provider] - - Patient Instructions - Post Discharge Activity
== END 2017-08-04 01:09 | disposition home or self-care (01) ==
LOC: JER 20:12
PROC: 3E033NZ Introduction of Analgesics, Hypnotics, Sedatives into Peripheral Vein, Percutaneous Approach (ICD-10-PCS; principal; 2017-08-03)
DX: Z09 Encounter for follow-up examination after completed treatment for conditions other than malignant neoplasm (principal); N20.0 Calculus of kidney; Z87.442 Personal history of urinary calculi; I10 Essential (primary) hypertension; J45.909 Unspecified asthma, uncomplicated
CPT/HCPCS: 36415; 74176; 80053; 81003; 81015; 84703; 85025; 99282-25

== ENCOUNTER 2017-09-29 12:12 | Emergency (ER) | payer OTHER ==
[2017-09-29 12:26] VITALS: BMI 25.0
[2017-09-29] MEDS ORDERED: KETOROLAC TROMETHAMINE 30 MG/1 ML VIAL ONE (12:29)
[2017-09-29] MEDS ORDERED: SODIUM CHLORIDE 1,000 ML IV STA ×2 (12:30→13:15)
[2017-09-29] MEDS ORDERED: ONDANSETRON 4 MG/2 ML VIAL IVPUSH ONE (12:30)
[2017-09-29] MEDS ORDERED: KETOROLAC TROMETHAMINE 30 MG/1 ML VIAL IVPUSH ONE (12:30)
[2017-09-29] MEDS ORDERED: TAMSULOSIN HCL 0.4 MG CAP.ER.24H (FP) PO ONE (12:33)
--- NOTE | 2017-09-29 12:33 | PDOC ---
History of Present Illness - General Chief Complaint: Pain Stated Complaint: ABDOMINAL PAIN Time Seen by Provider: 09/29/17 12:28 History Source: Patient - History of Present Illness Timing/Duration: reports: constant, getting worse Abdominal Pain Onset Location: reports: flank Pain Radiation: reports: groin Past History - Past Medical History Allergies/Adverse Reactions: Allergies Allergy/AdvReac Type Severity Reaction Status Date / Time No Known Allergies Allergy Verified 09/29/17 12:26 Home Medications: Ambulatory Orders Ibuprofen [Motrin -] 600 mg PO QID #28 tablet 09/29/17 Tramadol HCl 50 mg PO Q6H #12 tablet MDD 200mg 09/29/17 Anemia: No Asthma: Yes Cancer: No Cardiac Disorders: No CVA: No COPD: No CHF: No Dementia: No Diabetes: No GI Disorders: No Disorders: No HTN: Yes Hypercholesterolemia: No Kidney Stones: Yes Liver Disease: No Seizures: No Thyroid Disease: No - Surgical History Abdominal Surgery: Yes (TUMMY TUCK) - Suicide/Smoking/Psychosocial Hx Smoking History: Never smoked Have you smoked in the past 12 months: No Hx Alcohol Use: No Drug/Substance Use Hx: No Substance Use Type: None Review of Systems - Review of Systems Constitutional: No: Chills, Fever ABD/GI: Yes: Nausea. No: Vomiting : Yes: Flank Pain. No: Dysuria, Hematuria *Physical Exam - Vital Signs Last Vital Signs Temp Pulse Resp BP Pulse Ox 98 F 113 H 20 148/86 99 09/29/17 12:21 09/29/17 12:21 09/29/17 12:21 09/29/17 12:21 09/29/17 12:21 - Physical Exam General Appearance: Yes: Appropriately Dressed, Severe Distress HEENT: positive: Normal Voice Neck: positive: Supple Respiratory/Chest: negative: Respiratory Distress Gastrointestinal/Abdominal: positive: Normal Bowel Sounds, Tender (to R groin), Soft. negative: Distended, Guarding, Rebound Musculoskeletal: positive: CVA Tenderness (R) Integumentary: positive: Dry, Warm Neurologic: positive: Fully Oriented, Alert, Normal Mood/Affect ED Treatment Course - LABORATORY CBC & Chemistry Diagram: 09/29/17 12:30 09/29/17 12:30 - RADIOLOGY Radiology Studies Ordered: Category Date Time Status ABDOMEN & PELVIS CT W/O CONTR [CT] Stat CT Scan 09/29/17 12:31 Ordered Medical Decision Making - Medical Decision Making 09/29/17 12:31 47-year-old female, history of hypertension, asthma and kidney stones. Here with severe right flank pain that started at 3 AM today with nausea. No dysuria , hematuria, fever or chills. States current symptoms similar to prior stones. No surgeries for same See exam R flank pain M//l recurrent stone -pain control -zofran -IVF -flomax -labs -CT -reassess 09/29/17 14:34 CT read as non-obstructing bilateral renal calculi, unchanged from CT done 08/03. Seen today is a possible right cystic adnexal structure versus dilated fallopian tube that was not present on prior study. Ultrasound rule out torsion in progress 09/29/17 15:39 US read as 2 large simple cyst in right ovary with no evidence of torsion. Pt continues to complain of some pain at this time. Will continue to manage pain in ED and if improves, will dc with pain control and OB follow-up 09/29/17 16:37. Pt reports significant improvement in pain and stable for discharge at this time to follow up with her EXECUTIVE VICE PRESIDENT this week (states she has an appt in 2 days). Reasons to return discussed with patient *DC/Admit/Observation/Transfer Diagnosis at time of Disposition: Renal stones Ovarian cyst Qualifiers: Laterality: right Qualified Code(s): N83.201 - Unspecified ovarian cyst, right side - Prescriptions Prescriptions: Ibuprofen [Motrin -] 600 mg PO QID #28 tablet Tramadol HCl 50 mg PO Q6H #12 tablet MDD 200mg - Referrals Referrals: Nataliia Otero MD [Primary Care Provider] - - Patient Instructions Printed Discharge Instructions: Ovarian Cyst Additional Instructions: You have stones in both of your kidneys, but no obstructing stones. Please continue to follow-up with your urologist There are multiple cyst in your right ovary which could be causing your pain. Take pain medications as prescribed and follow-up with your EXECUTIVE VICE PRESIDENT - Post Discharge Activity
[2017-09-29 12:42] LABS: EOS % 1.9 % (0-4.5); HEMATOCRIT 40.1 % (32.4-45.2); HEMOGLOBIN 13.5 GM/dL (10.7-15.3); LYMPH % 45.7 % (8-40); MCH 31.5 pg (25.7-33.7); MCHC 33.7 g/dl (32.0-36.0); MEAN CELL VOLUME 93.3 fl (80-96); MEAN PLT VOLUME 8.1 fl (7.5-11.1); MONO % 4.7 % (3.8-10.2); NEUT % 46.7 % (42.8-82.8); PLATELET COUNT 342 K/MM3 (134-434); RDW 12.4 % (11.6-15.6); WHITE BLOOD COUNT 9.9 K/mm3 (4.0-10.0)
--- NOTE | 2017-09-29 12:44 | PDOC ---
*Physical Exam - Vital Signs Last Vital Signs Temp Pulse Resp BP Pulse Ox 98 F 113 H 20 148/86 99 09/29/17 12:21 09/29/17 12:21 09/29/17 12:21 09/29/17 12:21 09/29/17 12:21 ED Treatment Course - LABORATORY CBC & Chemistry Diagram: 09/29/17 12:30 09/29/17 12:30 - Medications Given in the ED: ED Medications Discontinued Medications Generic Name Dose Route Start Last Admin Trade Name Ruby PRN Reason Stop Dose Admin Ketorolac Tromethamine 30 mg 09/29/17 12:30 09/29/17 12:38 Toradol Injection - IVPUSH 09/29/17 12:31 30 mg ONCE ONE Administration Medical Decision Making - Medical Decision Making 09/29/17 12:43 The patient was seen and evaluated in conjunction with LISA Beard under my direct supervision, ancillary studies were reviewed. I independently interviewed and evaluated the patient and I agree with the plan as outlined by LISA Beard . 47-year-old female history of kidney stones presenting with severe right flank pain since this morning associated with multiple muscles of nonbilious nonbloody vomiting. No dysuria, fever, chills. Patient notes that this is unlike her kidney stones as this is much more severe. On exam the patient is very uncomfortable, retching, writhing around. Suspect kidney stones Plan for anti-emetics, analgesics, urine, labs, imaging *DC/Admit/Observation/Transfer Diagnosis at time of Disposition: Renal stones Ovarian cyst Qualifiers: Laterality: right Qualified Code(s): N83.201 - Unspecified ovarian cyst, right side - Prescriptions Prescriptions: Ibuprofen [Motrin -] 600 mg PO QID #28 tablet Tramadol HCl 50 mg PO Q6H #12 tablet MDD 200mg - Referrals Referrals: Nataliia Otero MD [Primary Care Provider] - - Patient Instructions Printed Discharge Instructions: Ovarian Cyst Additional Instructions: You have stones in both of your kidneys, but no obstructing stones. Please continue to follow-up with your urologist There are multiple cyst in your right ovary which could be causing your pain. Take pain medications as prescribed and follow-up with your COMPOSITE LAYUP WORKER - Post Discharge Activity
[2017-09-29] MEDS ORDERED: TAMSULOSIN HCL 0.4 MG CAP.ER.24H (FP) ONE (12:46)
[2017-09-29] MEDS ORDERED: morphine CARPU-JECT 4 MG/1 ML DISP.SYRIN IVPUSH ONE (12:57)
[2017-09-29] MEDS ORDERED: MORPHINE SULFATE 10 MG/1 ML *VIAL ONE (12:58)
[2017-09-29] MEDS ORDERED: ONDANSETRON 4 MG/2 ML VIAL ONE (12:59)
[2017-09-29 13:09] LABS: ALBUMIN 3.9 g/dl (3.4-5.0); ALK PHOS 61 U/L (45-117); ANION GAP 9 (8-16); BILIRUBIN,TOTAL 0.5 mg/dL (0.2-1.0); BLOOD UREA NITROGEN 13 mg/dL (7-18); CALCIUM 8.8 mg/dL (8.5-10.1); CHLORIDE 104 mmol/L (98-107); CO2 25 mmol/L (21-32); CREATININE 0.6 mg/dL (0.55-1.02); GLUCOSE,RANDOM 98 mg/dL (74-106); LIPASE 127 U/L (73-393); POTASSIUM 3.5 mmol/L (3.5-5.1); SGOT/AST 18 U/L (15-37); SGPT/ALT 21 U/L (12-78); SODIUM 138 mmol/L (136-145); TOT PROT 7.5 g/dl (6.4-8.2)
[2017-09-29] MEDS ORDERED: traMADol HCL 50 MG TABLET PO ONE (15:45)
[2017-09-29 15:48] VITALS: TEMP 97.6
[2017-09-29] MEDS ORDERED: traMADol HCL 50 MG TABLET ONE (15:53)
[2017-09-29 16:50] VITALS: BP 120/79; PULSE 78
== END 2017-09-29 16:50 | disposition home or self-care (01) ==
LOC: JER 12:12
PROC: 3E0337Z Introduction of Electrolytic and Water Balance Substance into Peripheral Vein, Percutaneous Approach (ICD-10-PCS; principal; 2017-09-29)
PROC: 3E033NZ Introduction of Analgesics, Hypnotics, Sedatives into Peripheral Vein, Percutaneous Approach (ICD-10-PCS; 2017-09-29)
PROC: 3E033GC Introduction of Other Therapeutic Substance into Peripheral Vein, Percutaneous Approach (ICD-10-PCS; 2017-09-29)
PROC: 3E0333Z Introduction of Anti-inflammatory into Peripheral Vein, Percutaneous Approach (ICD-10-PCS; 2017-09-29)
DX: N20.0 Calculus of kidney (principal); Z87.442 Personal history of urinary calculi; N83.201 Unspecified ovarian cyst, right side; I10 Essential (primary) hypertension; J45.909 Unspecified asthma, uncomplicated
CPT/HCPCS: 36415; 74176-TC; 76830-TC; 76856-TC; 80053; 83690; 84703; 85025; 96361; 96374; 96375; 99283-25

== ENCOUNTER 2017-10-28 05:19 | Day surgery (SDC) | payer OTHER ==
[2017-10-22 16:56] VITALS: BMI 25.4
--- NOTE | 2017-10-28 08:01 | HP ---
History & Physical Update - History History: No Change - Physical Physical: No Change - Assessment Assessment: No Change - Plan Plan: No Change (no interval changes since vist with Katy on 10/22/17 will proceed with surgery as discussed in office.)
[2017-10-28] MEDS ORDERED: ROCURONIUM BROMIDE 50 MG/5 ML VIAL ONE (11:21)
[2017-10-28] MEDS ORDERED: MIDAZOLAM HCL 2 MG/2 ML SINGLE DOSE VIAL ONE (11:21)
[2017-10-28] MEDS ORDERED: PROPOFOL 20 ML ONE (11:21)
[2017-10-28] MEDS ORDERED: ONDANSETRON 4 MG/2 ML VIAL IVPUSH PRN (11:29)
[2017-10-28] MEDS ORDERED: IBUPROFEN 800 MG/8 ML IJ IVPB PRN ×2 (11:29→18:14)
[2017-10-28] MEDS ORDERED: LACTATED RINGERS SOLUTION 1,000 ML IV SCH ×2 (11:30→18:15)
[2017-10-28] MEDS ORDERED: ceFAZolin SODIUM 1 GM VIAL IVPB ONE (12:05)
[2017-10-28] MEDS ORDERED: BUPIVACAINE HCL/PF 0.5% (5MG/ML) 10 ML VIAL ONE (12:28)
[2017-10-28] MEDS ORDERED: GLYCOPYRROLATE 0.2 MG/1 ML VIAL ONE (12:29)
[2017-10-28] MEDS ORDERED: DEXAMETHASONE SOD PHOSPHATE 4 MG/1 ML VIAL ONE (12:29)
[2017-10-28] MEDS ORDERED: NEOSTIGMINE METHYLSULFATE 0.5 MG/ML - 10 ML MDV ONE (12:29)
[2017-10-28] MEDS ORDERED: KETOROLAC TROMETHAMINE 30 MG/1 ML VIAL ONE (12:36)
[2017-10-28] MEDS ORDERED: BACITRACIN 15 GM TUBE TOPICAL OINTMENT ONE (12:48)
--- NOTE | 2017-10-28 13:12 | OP ---
Operative Note - Note: Operative Date: 10/28/17 Pre-Operative Diagnosis: bilateral ovarian cysts Operation: laparoscopic bilateral oophorectomy Surgeon: Angy Burns Head Banquet Waitress: Catie Brooks Anesthesiologist/DISTRICT WIRE CHIEF: Valerie Romero Anesthesia: General Specimens Removed: bilateral ovaries Estimated Blood Loss (mls): 5 Drains, Volume Out (mls): 300 Fluid Volume Replaced (mls): 900 Operative Report Dictated: Yes
--- NOTE | 2017-10-28 13:17 | SURG ---
Surgery Insurance Verification Representative Note Insurance Verification Representative: Catie Brooks PA-C Date of Service: 10/28/17 Diagnosis: bilateral ovarian cysts Procedure: laparoscopic bilateral oophorectomy I was present for the entirety of the operative procedure. For further detail, please refer to operative report. Visit type - Case Type Case Type: Scheduled Admission - Emergency Emergency Visit: No - New patient This patient is new to me today: Yes Date on this admission: 10/28/17
[2017-10-28] MEDS ORDERED: ACETAMINOPHEN INJECTION 100 ML IVPB ONE (14:21)
[2017-10-28] MEDS ORDERED: ACETAMINOPHEN 1000 MG/100 ML VIAL (NON FORMULARY) IVPB ONE ×2 (14:23→15:00)
[2017-10-28] MEDS ORDERED: oxyCODONE HCL 5 MG TABLET ONE (15:33)
[2017-10-28] MEDS ORDERED: oxyCODONE HCL 5 MG TABLET PO ONE ×2 (15:35→18:30)
[2017-10-28] MEDS ORDERED: ACETAMINOPHEN 325 MG TABLET (FP) PO PRN (18:14)
--- NOTE | 2017-10-28 18:18 | PN ---
Progress Note (short form) - Note Progress Note: Pt desires to be admitted for sattalite due to inc pain scale and un able to come home pt desires iv pain meds will admit to satalite
[2017-10-28] MEDS ORDERED: ACETAMINOPHEN 325 MG TABLET (FP) PO ONE (18:30)
[2017-10-28] MEDS ORDERED: MEPERIDINE HCL CARPU-JECT 50 MG/1 ML DISP.SYRIN IM ONE (18:30)
[2017-10-29] MEDS: oxyCODONE HCL 5 MG TABLET PO PRN ×2 (01:48→10:51)
--- NOTE | 2017-10-29 08:39 | OP ---
DATE OF OPERATION: 10/28/2017 PREOPERATIVE DIAGNOSIS: Pelvic pain, bilateral ovarian cysts. OPERATION: Laparoscopic bilateral oophorectomy. SURGEON: Angy Burns MD DISTRICT MANAGER [employer] SALES: LISA Jerome ANESTHESIOLOGIST: Valerie Romero MD ANESTHESIA: General. ESTIMATED BLOOD LOSS: 5 mL SPECIMENS REMOVED: Bilateral ovaries. DESCRIPTION OF PROCEDURE: Patient was taken to the operating room, placed in dorsal lithotomy position, prepped and draped in the usual sterile fashion. Timeout was performed in accordance with hospital regulation. Scalpel was then used to make an umbilical incision. Veress needle was inserted into the cavity. Approximately 3-4 L was insufflated into the cavity. Veress needle was then removed, and an 8-mm trocar was inserted. Laparoscope and camera attached. Visualization revealed bilateral ovarian cysts. Two trocars were placed in the left and right side of the lower abdomen under direct visualization. Trocars were then inserted. LigaSure was attached and grasper attached, and left tube was grasped and infundibulopelvic ligaments identified. LigaSure was then used to coagulate and cut the ovary away from the infundibulopelvic ligament. Ovary was then removed using the bag and submitted to Pathology. Attention was then drawn to the left side where ovary was then grasped, and LigaSure was used to coagulate and cut the infundibulopelvic ligament. The ovary was placed in the bag and removed. Specimen submitted to Pathology. Deshaun-Stephen was then used to close the incision on the left side , which was an 11-mm incision, and 0 Vicryl suture was then used to close the fascia. Subcutaneous was then closed using 4-0 Biosyn suture in a subcuticular fashion. Wound was washed and dressed. All incisions were closed with 4-0 Biosyn suture. The wound was washed and dressed. Estimated blood loss 5 mL. Laurie [id number] MTDD
--- NOTE | 2017-10-29 08:58 | PN ---
Progress Note (short form) - Note Progress Note: Pt stayed overnight for pain. She tolerated a diet this without any nausea/ emesis. No bowel function. Voiding without difficulty. Last medicated with oral oxycodone around 2 am. Vital Signs Period Temp Pulse Resp BP Sys/Stevens Pulse Ox Last 24 Hr 98.0 F-98.7 F 60-82 16-20 106-130/60-86 95-100 GEN: A&0x3, NAD ABD: sfot, non-distended, inc tendneress. Inc c/d/i. umbilical and left lateral dressing changed this am. No evidence of ecchymosis/masses. A/P: 47 yo female s/p laparsocopic oophorectomy, POD#1 cont diet as tolerated D/w nursing staff pain plan, IV ibuprofen/tylenol now and oxycodone in 2 to 4 hours to help with pain relief Plan for dishcarge to this morning/afternoon home medications for HTN resumed this am
[2017-10-29] MEDS ORDERED: ALBUTEROL SO4 18 GM HFA INHALER IH PRN ×2 (08:59→09:05)
[2017-10-29] MEDS ORDERED: HYDROCHLOROTHIAZIDE 25 MG TABLET (FP) PO SCH (10:00)
[2017-10-29] MEDS ORDERED: amLODIPine BESYLATE 10 MG TABLET (FP) PO SCH (10:00)
[2017-10-29 10:28] VITALS: BP 128/77; PULSE 63; TEMP 98.8
--- NOTE | 2017-10-30 08:46 | PATH ---
Surgical Pathology Report Patient Name: DARREN QUINTANILLA [facility]. Rec. #: [id number] /Age/Gender: 1970 (Age: 47) / F Account: [id number] Location: [facility] SURGICAL Taken: 10/28/2017 Received: 10/28/2017 Reported: 10/30/2017 Physicians: Angy Burns M.D. Specimen(s) Received A: RIGHT OVARY AND CYST B: LEFT OVARY AND CYST Clinical History Ovarian cyst Final Diagnosis A. RIGHT OVARY, OOPHERECTOMY: BENIGN OVARY WITH SURFACE EPITHELIAL INCLUSION CYST AND CORPUS LUTEUM. B. LEFT OVARY, OOPHERECTOMY: BENIGN OVARY WITH HEMORRHAGIC CORPUS LUTEUM, AND BENIGN SURFACE EPITHELIAL INCLUSION CYSTS. Electronically Signed Gennaro Maier M.D. Gross Description A. Received in formalin labeled "right ovary and cyst," is a 4.3 x 2.5 x 1.6 cm focally disrupted ovary. The outer surface is lucio and smooth with a focal disrupted cyst as well as a bulging 1.3 cm greatest dimension corpus luteum. Sectioning reveals foci of smaller serous cysts, measuring up to 0.7 cm in greatest dimension. Clinical Professor sections are submitted in 3 cassettes. B. Received in formalin labeled "left ovary and cyst," is a 4.8 x 2.1 x 1.5 cm intact ovary. The outer surface is lucio, convoluted and smooth. Sectioning reveals a 1.4 cm greatest dimension hemorrhagic corpus luteum. The remaining ovarian parenchyma displays multiple small serous and hemorrhagic cysts, measuring up to 0.4 cm in greatest dimension. Clinical Professor sections are submitted in 3 cassettes. /10/28/2017 saudi10/28/2017
== END 2017-10-29 15:23 | disposition home or self-care (01) ==
LOC: JASU-SURG 05:19 → J6S 19:00 → JASU-SURG 10-29 15:23
PROVIDERS: ATTEND Obstetrics & Gynecology
PROC: 0UT24ZZ Resection of Bilateral Ovaries, Percutaneous Endoscopic Approach (ICD-10-PCS; principal; 2017-10-28 09:30)
DX: N83.202 Unspecified ovarian cyst, left side (principal); N83.201 Unspecified ovarian cyst, right side
CPT/HCPCS: 84703; 88305-TC; 94760; J0131

== ENCOUNTER 2019-04-20 17:46 | Emergency (ER) | payer OTHER | END 2019-04-21 00:39 | disposition home or self-care (01) | LOC: JER 04-21 00:39 | PROC: 3E033NZ Introduction of Analgesics, Hypnotics, Sedatives into Peripheral Vein, Percutaneous Approach (ICD-10-PCS; principal; 2019-04-20) | PROC: 3E0333Z Introduction of Anti-inflammatory into Peripheral Vein, Percutaneous Approach (ICD-10-PCS; 2019-04-20) | DX: R10.31 Right lower quadrant pain (principal); I10 Essential (primary) hypertension; J45.909 Unspecified asthma, uncomplicated ==

== ENCOUNTER 2020-10-14 10:51 | Emergency (ER) | payer OTHER ==
[2020-10-14 11:08] VITALS: BMI 26.4
[2020-10-14] MEDS ORDERED: BAMLANIVIMAB 700 MG in SODIUM CHLORIDE 250 ML IVPB ONE (11:30)
[2020-10-14] MEDS ORDERED: IBUPROFEN 600 MG TABLET (FP) PO ONE ×2 (11:31→12:34)
[2020-10-14 12:01] LABS: HEMATOCRIT 37.8 % (32.4-45.2); HEMOGLOBIN 12.6 GM/dL (10.7-15.3); MCH 31.2 pg (25.7-33.7); MCHC 33.4 g/dl (32.0-36.0); MEAN CELL VOLUME 93.5 fl (80-96); MEAN PLT VOLUME 8.4 fl (7.5-11.1); PLATELET COUNT 267 K/MM3 (134-434); RBC 4.04 M/mm3 (3.60-5.2); RDW 12.4 % (11.6-15.6); WHITE BLOOD COUNT 6.4 K/mm3 (4.0-10.0)
[2020-10-14 12:29] LABS: POTASSIUM 3.8 mmol/L (3.5-5.1)
[2020-10-14 12:30] LABS: CALCIUM 9.6 mg/dL (8.5-10.1)
[2020-10-14 12:31] VITALS: PULSE 89; TEMP 98.5
[2020-10-14 12:31] LABS: BLOOD UREA NITROGEN 12.2 mg/dL (7-18)
[2020-10-14 12:34] LABS: CREATININE 0.7 mg/dL (0.55-1.3)
[2020-10-14 14:37] VITALS: BP 121/68
== END 2020-10-14 14:37 | disposition home or self-care (01) ==
LOC: JER 10:51 → JCOVINFU 10:51
DX: U07.1 COVID-19 (principal)
CPT/HCPCS: 36415; 71046-TC-FY; 80048; 84702; 85027; 99284-25; M0239; Q0239

== ENCOUNTER 2020-12-22 16:12 | Emergency (ER) | payer OTHER ==
[2020-12-22 16:32] VITALS: BP 150/82; PULSE 75; TEMP 98; BMI 26.9
[2020-12-22] MEDS ORDERED: ACETAMINOPHEN 1000 MG/100 ML VIAL (NON FORMULARY) IVPB ONE (17:32)
[2020-12-22] MEDS ORDERED: SODIUM CHLORIDE 0.9% 500 ML INFUS.BAG IV ONE (17:32)
[2020-12-22] MEDS ORDERED: ACETAMINOPHEN INJECTION 100 ML IVPB ONE (18:14)
[2020-12-22 18:39] LABS: BASO % 1.3 % (0-2.0); EOS % 1.7 % (0-4.5); HEMATOCRIT 41.3 % (32.4-45.2); HEMOGLOBIN 13.9 GM/dL (10.7-15.3); MCH 31.1 pg (25.7-33.7); MCHC 33.6 g/dl (32.0-36.0); MEAN CELL VOLUME 92.6 fl (80-96); MEAN PLT VOLUME 8.3 fl (7.5-11.1); MONO % 5.7 % (3.8-10.2); NEUT % 56.3 % (42.8-82.8); PLATELET COUNT 295 K/MM3 (134-434); RBC 4.46 M/mm3 (3.60-5.2); RDW 12.7 % (11.6-15.6); WHITE BLOOD COUNT 8.1 K/mm3 (4.0-10.0)
[2020-12-22 18:59] LABS: ALBUMIN 4.4 g/dl (3.4-5.0); BLOOD UREA NITROGEN 14.9 mg/dL (7-18); CALCIUM 9.7 mg/dL (8.5-10.1); MAGNESIUM 2.6 mg/dL (1.8-2.4)
[2020-12-22 19:03] LABS: CREATININE 0.6 mg/dL (0.55-1.3)
[2020-12-22 19:04] LABS: BILIRUBIN,TOTAL 0.5 mg/dL (0.2-1)
== END 2020-12-22 19:30 | disposition home or self-care (01) ==
LOC: JER 16:12
PROC: 3E033NZ Introduction of Analgesics, Hypnotics, Sedatives into Peripheral Vein, Percutaneous Approach (ICD-10-PCS; principal; 2020-12-22)
DX: M79.602 Pain in left arm (principal); M54.81 Occipital neuralgia; R20.2 Paresthesia of skin
CPT/HCPCS: 36415; 70450-TC; 80053; 83735; 85025; 99284-25; J0131

== ENCOUNTER 2021-04-24 12:41 | Emergency (ER) | payer OTHER ==
[2021-04-24 13:00] VITALS: BP 156/70; PULSE 76; TEMP 98.1; BMI 26.9
== END 2021-04-24 13:50 | disposition home or self-care (01) ==
LOC: JERFT 12:41
DX: K64.4 Residual hemorrhoidal skin tags (principal)
CPT/HCPCS: 99281-25